=== PATIENT | female | born 1985 | race Caucasian/White ===

== ENCOUNTER → 2017-03-07 | Outpatient (CLI) | payer OTHER ==
[~2017-03-07] MED LIST: ALBU90I INH; AZIT250 PO; Cheratussin AC118 ML PO; Flonase 0.05% N16 GM; HYDACE5 PO; HYDGUAL120 PO; IBUP800 PO; Monodox100 MG PO; PROCODE120 PO; Prednisone20 MG PO; Sudogest30 MG PO; Tamiflu75 MG PO; Veetids 500500 MG PO
[2017-03-10 15:17] LABS: HPV Genotype 16 Not Detected (NOTDET); HPV Genotype 18 Not Detected (NOTDET)
[2017-03-17 14:51] LABS: HPV High Risk Other Not Detected (NOTDET)
== END ==
LOC: LAB 18:28
PROVIDERS: Nurse Practitioner Family
DX: Z12.4 Encounter for screening for malignant neoplasm of cervix (principal)
CPT/HCPCS: 87624; G0145

== ENCOUNTER 2017-04-13 18:05 | Emergency (ER) | payer OTHER ==
[~2017-04-13] VITALS: Ht 170.2 cm; Wt 72.6 kg
[~2017-04-13 18:05] MED LIST changes: -Cheratussin AC118 ML PO; -Flonase 0.05% N16 GM; -Prednisone20 MG PO; -Sudogest30 MG PO; -Tamiflu75 MG PO
[2017-04-13 19:13] LABS: Influenza A Negative (NEGATIVE); Influenza B Positive (NEGATIVE)
[2017-04-13] MEDS ORDERED: Tamiflu75 MG PO (19:17)
[2018-01-30] MEDS ORDERED: Cheratussin AC118 ML PO (17:38)
[2018-01-30] MEDS ORDERED: Flonase 0.05% N16 GM (17:38)
[2018-01-30] MEDS ORDERED: Sudogest30 MG PO (17:38)
== END 2017-04-13 19:47 | disposition home or self-care (01) ==
LOC: ER 18:05
PROVIDERS: Emergency Medicine
DX: J10.1 Influenza due to other identified influenza virus with other respiratory manifestations (principal); F17.210 Nicotine dependence, cigarettes, uncomplicated
CPT/HCPCS: 71046; 87804; 99283

== ENCOUNTER 2017-04-16 00:19 | Emergency (ER) | payer OTHER ==
[~2017-04-16] VITALS: Ht 170.2 cm; Wt 72.6 kg
[~2017-04-16 00:19] MED LIST changes: +Tamiflu75 MG PO
[2017-04-16] MEDS ORDERED: Prednisone20 MG PO (00:43)
[2018-01-30] MEDS ORDERED: Cheratussin AC118 ML PO (17:38)
[2018-01-30] MEDS ORDERED: Flonase 0.05% N16 GM (17:38)
[2018-01-30] MEDS ORDERED: Sudogest30 MG PO (17:38)
== END 2017-04-16 01:00 | disposition home or self-care (01) ==
LOC: ER 00:19
DX: L29.8 Other pruritus (principal); T37.5X5A Adverse effect of antiviral drugs, initial encounter; F17.210 Nicotine dependence, cigarettes, uncomplicated
CPT/HCPCS: 96372; 99283; J1100; Q0163

== ENCOUNTER 2018-02-24 21:46 | Emergency (ER) | payer OTHER ==
[~2018-02-24] VITALS: Ht 170.2 cm; Wt 68.0 kg
[~2018-02-24 21:46] MED LIST changes: +Cheratussin AC118 ML PO; +Flonase 0.05% N16 GM; +Prednisone20 MG PO; +Sudogest30 MG PO
== END 2018-02-24 23:04 | disposition left against medical advice (07) ==
LOC: ER 21:46
DX: Z53.1 Procedure and treatment not carried out because of patient's decision for reasons of belief and group pressure (principal); K04.7 Periapical abscess without sinus